=== PATIENT | female | born 1995 | race Caucasian/White ===

== ENCOUNTER → 2016-06-24 | Outpatient (CLI) | payer MEDICAID | LOC: RAD 14:47 | PROVIDERS: ATTEND Specialist | DX: G40.89 Other seizures (principal); R51 Headache | CPT/HCPCS: 70553; A9577 ==

== ENCOUNTER 2016-12-12 13:37 | Emergency (ER) | payer MEDICARE, MEDICAID ==
--- NOTE | 2016-12-12 14:47 | ER Document Report ---
ED Extremity Problem, Lower - General Chief Complaint: Leg Pain Stated Complaint: RIGHT SIDE HIP AND LEG PAIN Time Seen by Provider: 12/12/16 14:17 Mode of Arrival: Ambulatory Information source: Patient Notes: 21-year-old female presents to ED for right hip and leg pain for the last 4 days. She called her primary doctor and they told her to come to the emergency room to ensure that she did not have a blood clot in that leg. She states she is actually had the pain since 2016 but has been worse for the last 4 days. She came in she had a knee immobilizer on that the mother states that she got at 1 of her visits to the ER. TRAVEL OUTSIDE OF THE [place] IN LAST 30 DAYS: No - HPI Patient complains to provider of: Pain, Swelling Location: Hip, Knee, Leg, Thigh Occurred: Other - chchronic worse the last 4 days Quality of pain: Other - chronic Severity: Severe Pain Level: 5 Recent injury: No Associated symptoms: Painful ambulation Exacerbated by: Movement, Walking Relieved by: Nothing - Related Data Allergies/Adverse Reactions: acetaminophen [From Darvocet-N] Allergy (Verified 12/12/16 13:42) adhesive tape Allergy (Verified 12/12/16 13:42) codeine Allergy (Verified 12/12/16 13:42) escitalopram [From Lexapro] Allergy (Verified 12/12/16 13:42) hydromorphone [From Dilaudid] Allergy (Verified 12/12/16 13:42) ketorolac [From Toradol] Allergy (Verified 12/12/16 13:42) meperidine [From Demerol] Allergy (Verified 12/12/16 13:42) morphine Allergy (Verified 12/12/16 13:42) nitrofurantoin [From Macrobid] Allergy (Verified 12/12/16 13:42) ondansetron [From Zofran (as hydrochloride)] Allergy (Verified 12/12/16 13:42) propoxyphene [From Darvocet-N] Allergy (Verified 12/12/16 13:42) silver [From Tegaderm AG Mesh] Allergy (Verified 12/12/16 13:42) Past Medical History - General Information source: Patient, Relative - Social History Smoking Status: Never Smoker Cigarette use (# per day): No Chew tobacco use (# tins/day): No Smoking Education Provided: No Frequency of alcohol use: None Drug Abuse: None Lives with: Family Family History: Reviewed & Not Pertinent - Past Medical History Cardiac Medical History: Reports: None Pulmonary Medical History: Reports: None Neurological Medical History: Reports: Hx Seizures Endocrine Medical History: Reports: None Renal/ Medical History: Reports: None Malignancy Medical History: Reports: None GI Medical History: Reports: None Musculoskeltal Medical History: Reports Hx Arthritis, Reports Other - chronic pain right knee and leg Skin Medical History: Reports None Psychiatric Medical History: Reports: Hx Anxiety, Hx Depression Traumatic Medical History: Reports: None Past Surgical History: Reports: Hx Appendectomy, Hx Gynecologic Surgery - Immunizations Hx Diphtheria, Pertussis, Tetanus Vaccination: Yes Review of Systems - Review of Systems Constitutional: No symptoms reported EENT: No symptoms reported Cardiovascular: No symptoms reported Respiratory: No symptoms reported Gastrointestinal: No symptoms reported Genitourinary: No symptoms reported Female Genitourinary: No symptoms reported Musculoskeletal: Other - right thigh knee and leg pain chronic worse x 4 days Skin: No symptoms reported Hematologic/Lymphatic: No symptoms reported Neurological/Psychological: No symptoms reported -: Yes All other systems reviewed and negative Physical Exam - Vital signs Vitals: Temp Pulse Resp BP Pulse Ox 97.7 F 86 20 103/53 L 97 12/12/16 13:42 12/12/16 13:42 12/12/16 13:42 12/12/16 13:42 12/12/16 13:42 Interpretation: Normal - General General appearance: Appears well, Alert - HEENT Head: Normocephalic, Atraumatic Eyes: Normal Pupils: PERRL - Respiratory Respiratory status: No respiratory distress Chest status: Nontender Breath sounds: Normal Chest palpation: Normal - Cardiovascular Rhythm: Regular Heart sounds: Normal auscultation Murmur: No - Abdominal Inspection: Normal Distension: No distension Bowel sounds: Normal Tenderness: Nontender Organomegaly: No organomegaly - Back Back: Normal, Nontender - Extremities General upper extremity: Normal inspection, Nontender, Normal color, Normal ROM , Normal temperature General lower extremity: Normal inspection, Normal color, Normal temperature. No: Madisyn's sign Thigh: Tender Knee: Tender Calf: Tender Ankle: Tender - Neurological Neuro grossly intact: Yes Cognition: Normal Orientation: AAOx4 [place] Coma Scale Eye Opening: Spontaneous [place] Coma Scale Verbal: Oriented [place] Coma Scale Motor: Obeys Commands [place] Coma Scale Total: 15 Speech: Normal Motor strength normal: LUE, RUE, LLE, RLE Sensory: Normal - Psychological Associated symptoms: Normal affect, Normal mood - Skin Skin Temperature: Warm Skin Moisture: Dry Skin Color: Normal Course - Re-evaluation Re-evalutation: 12/12/16 21:28 Labs and ultrasound with patient and mother. Patient treated with a Lidoderm patch to the right knee. Patient knee immobilizer reapplied and patient discharged home to follow-up with her primary doctor. A copy of the x-ray and labs given to patient to follow-up. Mother stated that patient had a seizure while she was in the emergency room the patient was able to open her eyes and respond was not incontinent of urine. - Vital Signs Vital signs: Temp Pulse Resp BP Pulse Ox 97.7 F 79 16 117/62 98 12/12/16 13:42 12/12/16 17:43 12/12/16 17:43 12/12/16 17:43 12/12/16 17:43 - Laboratory Result Diagrams: 12/12/16 15:30 12/12/16 15:30 Laboratory results interpreted by me: 12/12/16 12/12/16 15:30 15:30 RBC 3.56 L Hgb 10.7 L Hct 31.2 L RDW 14.6 H Creatinine 0.49 L AST 12 L - Diagnostic Test Radiology reviewed: Image reviewed, Reports reviewed Discharge - Discharge Clinical Impression: Right leg pain Condition: Stable Disposition: HOME, SELF-CARE Additional Instructions: Leg Pain, Nonspecific We did not find an obvious cause for your leg pain. There's no sign of blood clot, infection, or other serious disease. Possible causes of vague leg pain include muscle or joint inflammation, disc disease in the lower back, pressure on the nerves in the back, or reduced blood flow through the arteries of the leg. Rest the leg. Pain can be eased with an antiinflammatory pain medicine such as ibuprofen. If the pain involves a small area, a heating pad might help. Call the doctor or return if the leg becomes swollen, weak, discolored, or increasingly painful, or if you develop any other significant change in your health. The patch was applied to your right knee for your knee pain that you have had since 2016 that she states was worse for the last 4 days. Your Doppler was negative a written report was given to you to follow-up with your primary doctor. Your labs were negative and a written report given to you to follow-up with your primary doctor. FOLLOW-UP CARE: If you have been referred to a physician for follow-up care, call the physician s office for an appointment as you were instructed or within the next two days. If you experience worsening or a significant change in your symptoms, notify the physician immediately or return to the Emergency Department at any time for re-evaluation. Prescriptions: Lidocaine [Lidoderm 5% (700 mg) Transdermal Patch] 1 patch TP DAILY #14 adh..patch Referrals: DUC PIERCE PA [Primary Care Provider] - Follow up as needed
[2016-12-12 16:00] LABS: ABSOLUTE BASOPHILS # (AUTO) 0.1 10^3/uL (0.0-0.2); ABSOLUTE EOSINOPHILS # (AUTO) 0.2 10^3/uL (0.0-0.6); ABSOLUTE LYMPHOCYTES (AUTO) 2.1 10^3/uL (0.5-4.7); ABSOLUTE MONOCYTES (AUTO) 0.7 10^3/uL (0.1-1.4); ABSOLUTE NEUT (AUTO) 5.6 10^3/uL (1.7-8.2); BASOPHILS % (AUTO) 0.7 % (0-2); EOSINOPHILS % (AUTO) 2.1 % (0-6); HEMATOCRIT 31.2 % (36.0-47.0); HEMOGLOBIN 10.7 g/dL (12.0-15.5); HGB HCT DIFFERENCE 0.9; LYMPHOCYTES % (AUTO) 23.8 % (13-45); MEAN CORPUSCULAR HEMOGLOBIN 30.2 pg (27.0-33.4); MEAN CORPUSCULAR HGB CONC 34.5 g/dL (32.0-36.0); MEAN CORPUSCULAR VOLUME 88 fl (80-97); MONOCYTES % (AUTO) 8.5 % (3-13); RED BLOOD COUNT 3.56 10^6/uL (3.72-5.28); RED CELL DISTRIBUTION WIDTH 14.6 % (11.5-14.0); SEGMENTED NEUTROPHILS % (AUTO) 64.9 % (42-78); WHITE BLOOD COUNT 8.7 10^3/uL (4.0-10.5)
[2016-12-12] MEDS ORDERED: LIDOCAINE 5% (700 MG) TRANSDERMAL ADH..PATCH TP ONE (16:09)
--- NOTE | 2016-12-12 16:12 | XCELERA REPORT ---
[address] [address] Lower Extremity Venous Evaluation Name: NATALIE SETHI Age: 21 yrs Gender: Female : 1995 Patient Status: Emergency Patient Location: ER Study Date: 12/12/2016 03:04 PM Procedure: Color flow and duplex imaging of the veins of the right lower extremity as well as the left Common Femoral vein. Reason For Study: pain to posterior thigh knee and calf Ordering Physician: CLAIRE HOWELL Performed By: Eliza Santiago Right Sided Venous Evaluation Distal Femoral vein not well visualized due to body habitus. Normal vessel filling wall to wall, compression and augmentation as well as Colour flow down to the infrageniculate veins. Left Sided Venous Evaluation The left common femoral vein is fully compressible. Spontaneous and phasic flow is present in the left common femoral vein. Critical Findings Preliminary called in. Interpretation Summary No duplex evidence of DVT or obstruction in the right lower extremity nor in the left Common Femoral vein. : CLAIRE HOWELL > Stephen Canales
[2016-12-12 16:19] LABS: ALANINE AMINOTRANSFERASE 21 U/L (9-52); ALBUMIN 3.8 g/dL (3.5-5.0); ALKALINE PHOSPHATASE 66 U/L (38-126); ANION GAP 10 (5-19); ASPARTATE AMINO TRANSFERASE 12 U/L (14-36); BILIRUBIN,DIRECT 0.3 mg/dL (0.0-0.4); BILIRUBIN,TOTAL 0.4 mg/dL (0.2-1.3); BLOOD UREA NITROGEN 10 mg/dL (7-20); CALCIUM 9.1 mg/dL (8.4-10.2); CARBON DIOXIDE 25 mmol/L (22-30); CHLORIDE 103 mmol/L (98-107); CREATINE KINASE 42 U/L (30-135); CREATININE RESULT 0.49 mg/dL (0.52-1.25); GLUCOSE 77 mg/dL (75-110); POTASSIUM 4.3 mmol/L (3.6-5.0); SODIUM 138.1 mmol/L (137-145); TOTAL PROTEIN 7.3 g/dL (6.3-8.2)
[2016-12-12 16:50] LABS: APPEARANCE,URINE CLEAR; BILIRUBIN,URINE NEGATIVE (NEGATIVE); GLUCOSE, URINE NEGATIVE (NEGATIVE); KETONES,URINE NEGATIVE (NEGATIVE); LEUKOCYTE ESTERASE,URINE NEGATIVE (NEGATIVE); NITRITE,URINE NEGATIVE (NEGATIVE); PROTEIN,URINE NEGATIVE (NEGATIVE); URINE SPECIFIC GRAVITY 1.009; UROBILINOGEN,URINE NEGATIVE mg/dL (<2.0)
[2016-12-12 17:01] LABS: URINE BARBITURATES SCREEN NEGATIVE; URINE METHADONE SCREEN NEGATIVE; URINE OPIATES LOW NEGATIVE; URINE PHENCYCLIDINE SCREEN NEGATIVE
[2016-12-12 17:45] VITALS: BP 117/62
== END 2016-12-12 17:44 | disposition home or self-care (01) ==
LOC: ER 13:37
DX: M79.604 Pain in right leg (principal); M25.551 Pain in right hip; M79.89 Other specified soft tissue disorders
CPT/HCPCS: 36415; 80053; 80307; 81001; 82550; 84703; 85025; 93971; 99283

== ENCOUNTER 2017-01-05 04:10 | Emergency (ER) | payer MEDICARE, MEDICAID ==
--- NOTE | 2017-01-05 04:19 | ER Document Report ---
ED General - General Chief Complaint: Probable Seizure Stated Complaint: PROBABLE SEIZURE Time Seen by Provider: 01/05/17 04:16 Mode of Arrival: Medic Information source: Patient, Relative, Emergency Med Personnel Notes: 21-year-old female history of epilepsy which mother states is brought on by her pain presents after her leg pain caused her to seize today mother notes it was a normal seizure. Denies any fevers or chills denies any nausea or vomiting, mother states she was holding the patient when it occurred and she hit her shoulder TRAVEL OUTSIDE OF THE [place] IN LAST 30 DAYS: No - HPI Onset: Just prior to arrival Onset/Duration: Sudden Quality of pain: No pain Severity: Mild Pain Level: Denies Associated symptoms: Other Exacerbated by: Denies Relieved by: Denies Similar symptoms previously: Yes Recently seen / treated by doctor: Yes - Related Data Allergies/Adverse Reactions: acetaminophen [From Darvocet-N] Allergy (Verified 12/12/16 13:42) adhesive tape Allergy (Verified 12/12/16 13:42) codeine Allergy (Verified 12/12/16 13:42) escitalopram [From Lexapro] Allergy (Verified 12/12/16 13:42) hydromorphone [From Dilaudid] Allergy (Verified 12/12/16 13:42) ketorolac [From Toradol] Allergy (Verified 12/12/16 13:42) meperidine [From Demerol] Allergy (Verified 12/12/16 13:42) morphine Allergy (Verified 12/12/16 13:42) nitrofurantoin [From Macrobid] Allergy (Verified 12/12/16 13:42) ondansetron [From Zofran (as hydrochloride)] Allergy (Verified 12/12/16 13:42) propoxyphene [From Darvocet-N] Allergy (Verified 12/12/16 13:42) silver [From Tegaderm AG Mesh] Allergy (Verified 12/12/16 13:42) Past Medical History - Social History Smoking Status: Never Smoker Cigarette use (# per day): No Chew tobacco use (# tins/day): No Smoking Education Provided: No Family History: Reviewed & Not Pertinent Neurological Medical History: Reports: Hx Seizures Renal/ Medical History: Denies: Hx Peritoneal Dialysis Musculoskeltal Medical History: Reports Hx Arthritis Psychiatric Medical History: Reports: Hx Anxiety, Hx Depression Past Surgical History: Reports: Hx Appendectomy, Hx Gynecologic Surgery - Immunizations Hx Diphtheria, Pertussis, Tetanus Vaccination: Yes Review of Systems - Review of Systems Notes: REVIEW OF SYSTEMS: CONSTITUTIONAL : Denies fever, chills, or sweats. Denies recent illness. EENT: Denies eye, ear, throat, or mouth pain or symptoms. Denies nasal or sinus congestion or discharge. Denies throat, tongue, or mouth swelling or difficulty swallowing. CARDIOVASCULAR: Denies chest pain. Denies palpitations or racing or irregular heart beat. Denies ankle edema. RESPIRATORY: Denies cough, cold, or chest congestion. Denies shortness of breath, difficulty breathing, or wheezing. GASTROINTESTINAL: Denies abdominal pain or distention. Denies nausea, vomiting , or diarrhea. Denies blood in vomitus, stools, or per rectum. Denies black, tarry stools. Denies constipation. GENITOURINARY: Denies difficulty urinating, painful urination, burning, frequency, blood in urine, or discharge. FEMALE GENITOURINARY: Denies vaginal bleeding, heavy or abnormal periods, irregular periods. Denies vaginal discharge or odor. MUSCULOSKELETAL: Admits to right arm pain SKIN: Denies rash, lesions or sores. HEMATOLOGIC : Denies easy bruising or bleeding. LYMPHATIC: Denies swollen, enlarged glands. NEUROLOGICAL: Admits to seizure-like activity PSYCHIATRIC: Denies anxiety or stress. Denies depression, suicidal ideation, or homicidal ideation. ALL OTHER SYSTEMS REVIEWED AND NEGATIVE. PHYSICAL EXAMINATION: GENERAL: Well-appearing, well-nourished and in no acute distress. HEAD: Atraumatic, normocephalic. EYES: Pupils equal round and reactive to light, extraocular movements intact, conjunctiva are normal. ENT: Nares patent, oropharynx clear without exudates. Moist mucous membranes. NECK: Normal range of motion, supple without lymphadenopathy LUNGS: Breath sounds clear to auscultation bilaterally and equal. No wheezes rales or rhonchi. HEART: Regular rate and rhythm without murmurs ABDOMEN: Soft, nontender, nondistended abdomen. No guarding, no rebound. No masses appreciated. Female : deferred Musculoskeletal: Generalized tenderness of her right side patient was able to ambulate on scene NEUROLOGICAL: Cranial nerves grossly intact. Normal speech, normal gait. Normal sensory, motor exams Initially patient refuses to talk and will only squeeze hand to say yes or no, but when I stated I could not remove her c-collar until she talked patient stated clearly that she had no neck pain PSYCH: Normal mood, normal affect. SKIN: Warm, Dry, normal turgor, no rashes or lesions noted. Dictation was performed using [employer] voice recognition software Physical Exam - Vital signs Vitals: Temp Pulse Resp BP Pulse Ox 97.7 F 78 20 114/60 97 01/05/17 04:17 01/05/17 04:17 01/05/17 04:17 01/05/17 04:17 01/05/17 04:17 Course - Re-evaluation Re-evalutation: 01/05/17 04:18 I have extremely low suspicion for any life-threatening issues, patient is responding appropriately. X-rays have been ordered of her right upper extremity given her complaint of pain 01/05/17 04:19 I do not believe any lab work or other imaging is required given that patient's pain brings on these seizure-like episodes 01/05/17 04:37 It appears that patient had a "seizure episode" while in the ED 2-3 weeks ago during which time she was responding and her eyes were open, this would be consistent with her current presentation 01/05/17 04:51 X-rays noted no acute abnormalities patient is awake alert family is happy to take her home. They are very happy with her care. After performing a Medical Screening Examination, I estimate there is LOW risk for INTRACRANIAL HEMORRHAGE, ISCHEMIC CVA, MALIGNANT DYSRHYTHMIA, ACUTE CORONARY SYNDROME, MENINGITIS, PULMONARY EMBOLISM, or SEPSIS thus I consider the discharge disposition reasonable. I have reevaluated this patient multiple times and no significant life threatening changes are noted. The patient and I have discussed the diagnosis and risks, and we agree with discharging home with close follow-up with the understanding that symptoms and presentations can change. We also discussed returning to the Emergency Department immediately if new or worsening symptoms occur. We have discussed the symptoms which are most concerning (e.g., changing or worsening pain, weakness, vomiting, fever) that necessitate immediate return. - Vital Signs Vital signs: Temp Pulse Resp BP Pulse Ox 97.7 F 78 20 114/60 97 01/05/17 04:17 01/05/17 04:17 01/05/17 04:17 01/05/17 04:17 01/05/17 04:17 - Diagnostic Test Radiology reviewed: Image reviewed, Reports reviewed - right elbow pain , no fracture Discharge - Discharge Clinical Impression: Seizure-like activity, Right elbow pain Right shoulder pain Qualifiers: Chronicity: acute Qualified Code(s): M25.511 - Pain in right shoulder Hip pain Qualifiers: Laterality: right Qualified Code(s): M25.551 - Pain in right hip Condition: Stable Disposition: HOME, SELF-CARE Instructions: Seizure, Known Epileptic ([facility]) Referrals: DUC PIERCE PA [Primary Care Provider] - Follow up tomorrow
[2017-01-05] MEDS ORDERED: AMMONIA INHALANTS 10 AMPUL/BOX IH ONE (04:40)
[2017-01-05 05:04] VITALS: BP 113/61
--- NOTE | 2017-01-05 05:07 | RADIOLOGY REPORT (SQ) ---
EXAM DESCRIPTION: SHOULDER RIGHT 2 OR MORE VIEWS COMPLETED DATE/TIME: 01/05/2017 4:51 am REASON FOR STUDY: fall COMPARISON: None. NUMBER OF VIEWS: Three views. TECHNIQUE: Internal rotation, external rotation, and Y view images acquired of the right shoulder. LIMITATIONS: None. FINDINGS: MINERALIZATION: Normal. BONES: No acute fracture or dislocation. No worrisome bone lesions. JOINTS: No dislocation. VISUALIZED LUNGS AND RIBS: No pneumothorax. No rib fracture. SOFT TISSUES: No radiopaque foreign body. OTHER: No other significant finding. IMPRESSION: NEGATIVE STUDY OF THE RIGHT SHOULDER. NO RADIOGRAPHIC EVIDENCE OF ACUTE INJURY. TECHNICAL DOCUMENTATION: JOB ID: [id number] [employer]- All Rights Reserved
--- NOTE | 2017-01-05 05:07 | RADIOLOGY REPORT (SQ) ---
EXAM DESCRIPTION: ELBOW RIGHT OVER 2 VIEWS COMPLETED DATE/TIME: 01/05/2017 4:51 am REASON FOR STUDY: fall COMPARISON: None. NUMBER OF VIEWS: Four views. TECHNIQUE: AP, lateral, and both oblique radiographic images acquired of the right elbow. LIMITATIONS: None. FINDINGS: MINERALIZATION: Normal. BONES: No acute fracture or dislocation. No worrisome bone lesions. JOINT: No effusion. SOFT TISSUES: No soft tissue swelling. No foreign body. OTHER: No other significant finding. IMPRESSION: NEGATIVE STUDY OF THE RIGHT ELBOW. NO RADIOGRAPHIC EVIDENCE OF ACUTE INJURY. TECHNICAL DOCUMENTATION: JOB ID: [id number] [employer]- All Rights Reserved
== END 2017-01-05 05:04 | disposition home or self-care (01) ==
LOC: ER 04:10
DX: M25.521 Pain in right elbow (principal); M25.511 Pain in right shoulder; M25.551 Pain in right hip
CPT/HCPCS: 99284

== ENCOUNTER → 2017-06-09 | Outpatient (CLI) | payer MEDICARE, MEDICAID | LOC: LAB 13:10 | PROVIDERS: ATTEND Specialist | DX: G40.89 Other seizures (principal); Z79.899 Other long term (current) drug therapy | CPT/HCPCS: 36415; 80164 ==

== ENCOUNTER → 2017-09-12 | Outpatient (CLI) | payer MEDICARE, MEDICAID ==
[2017-09-12 11:18] LABS: HEMOGLOBIN 11.8 g/dL (12.0-15.5); MEAN CORPUSCULAR HEMOGLOBIN 29.2 pg (27.0-33.4); MEAN CORPUSCULAR HGB CONC 33.6 g/dL (32.0-36.0); MEAN CORPUSCULAR VOLUME 87 fl (80-97); PLATELET COUNT 253 10^3/uL (150-450); RED BLOOD COUNT 4.03 10^6/uL (3.72-5.28); RED CELL DISTRIBUTION WIDTH 15.7 % (11.5-14.0); WHITE BLOOD COUNT 13.6 10^3/uL (4.0-10.5)
[2017-09-12 11:49] LABS: ALANINE AMINOTRANSFERASE 23 U/L (9-52); ALBUMIN 3.9 g/dL (3.5-5.0); ALKALINE PHOSPHATASE 62 U/L (38-126); ASPARTATE AMINO TRANSFERASE 15 U/L (14-36); BILIRUBIN,DIRECT 0.2 mg/dL (0.0-0.4); BILIRUBIN,TOTAL 0.3 mg/dL (0.2-1.3); TOTAL PROTEIN 7.2 g/dL (6.3-8.2)
--- NOTE | 2017-09-12 11:57 | RADIOLOGY REPORT (SQ) ---
EXAM DESCRIPTION: MRI HEAD COMBO COMPLETED DATE/TIME: 09/12/2017 10:47 am REASON FOR STUDY: R56.9 UNSPECIFIED CONVULSIONS R56.9 UNSPECIFIED CONVULSIONS COMPARISON: 06/24/2016 TECHNIQUE: Multiplanar imaging includes noncontrasted T1, T2, FLAIR, diffusion with ADC map and post gadolinium contrast T1 sequences. Images stored on PACS. CONTRAST TYPE AND DOSE: 20 mL Multihance. RENAL FUNCTION: None required. The patient is less than 50 years old. LIMITATIONS: Artifact from metal jewelry right ear. FINDINGS: ANATOMY: No anomalies. Normal vascular flow voids. Pituitary fossa normal. CSF SPACES: Normal in size and contour. No hemorrhage. CEREBRUM: Sulci and gyri normal in size and contour. Normal white matter signal on FLAIR imaging. No evidence of hemorrhage, mass, or extraaxial fluid collection. No abnormal enhancement post contrast. POSTERIOR FOSSA: No signal alteration. No hemorrhage. No edema, masses, or mass effect. Internal ana tory canals, cerebellopontine angles, mastoids normal. No enhancing lesions. No abnormal enhancement post contrast. DIFFUSION IMAGING: Negative for acute or subacute infarction. ORBITS: No masses. Globes normal. PARANASAL SINUSES: No fluid levels. Mucosa normal. OTHER: No other significant finding. IMPRESSION: NORMAL MRI OF THE BRAIN WITHOUT AND WITH INTRAVENOUS GADOLINIUM CONTRAST. EVIDENCE OF ACUTE STROKE: NO. TECHNICAL DOCUMENTATION: JOB ID: [id number] [employer]- All Rights Reserved Reading location - IP/workstation name: [email or web address]
== END ==
LOC: RAD 11:31
PROVIDERS: ATTEND Nurse Practitioner Family
DX: R56.9 Unspecified convulsions (principal); G43.709 Chronic migraine without aura, not intractable, without status migrainosus; Z79.899 Other long term (current) drug therapy
CPT/HCPCS: 36415; 85027; 80076; 80164; 70553; A9577

== ENCOUNTER 2017-09-21 01:32 | Emergency (ER) | payer MEDICARE, MEDICAID ==
[2017-09-21] MEDS ORDERED: IPRATROPIUM/ALBUTEROL 0.5-2.5 MG/3 ML AMPUL NEB ONE (01:49)
[2017-09-21] MEDS ORDERED: DIPHENHYDRAMINE HCL 50 MG/ML VIAL IV ONE (02:01)
[2017-09-21] MEDS ORDERED: NORMAL SALINE 1000 ML 1,000 ML IV ONE (02:01)
[2017-09-21] MEDS ORDERED: DEXAMETHASONE SOD PHOS INJ 10 MG/1 ML VIAL IV ONE (02:01)
[2017-09-21] MEDS ORDERED: METOCLOPRAMIDE HCL INJ/PF 10 MG/2 ML SDV IV ONE (02:02)
--- NOTE | 2017-09-21 02:37 | RADIOLOGY REPORT (SQ) ---
EXAM DESCRIPTION: CT of the head without contrast CLINICAL HISTORY: headache, seizure COMPARISON: None available TECHNIQUE: Axial CT of the head obtained from the skull apex to the skull base without contrast. FINDINGS: No acute intracranial hemorrhage identified. No mass, mass effect, shift of the midline, abnormal extra-axial fluid collection or CT evidence of acute ischemic change identified. The ventricular system is unremarkable. No acute abnormalities of the supratentorial white matter, basal ganglia, cerebellum, or brainstem. The visualized paranasal sinuses and the mastoids are clear. No skull fracture identified. Visualized orbits and globes are unremarkable. DLP: 1017.17 mGy-cm IMPRESSION: 1. No acute intracranial abnormality identified. This exam was performed according to our departmental dose-optimization program, which includes automated exposure control, adjustment of the mA and/or kV according to patient size and/or use of iterative reconstruction technique.
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
[2017-09-21 03:28] VITALS: BP 121/79
== END 2017-09-21 03:26 | disposition home or self-care (01) ==
LOC: ER 01:32
DX: R51 Headache (principal); W22.8XXA Striking against or struck by other objects, initial encounter; Y93.89 Activity, other specified; G40.909 Epilepsy, unspecified, not intractable, without status epilepticus; Z79.899 Other long term (current) drug therapy; Z87.820 Personal history of traumatic brain injury; Z88.5 Allergy status to narcotic agent; Z91.048 Other nonmedicinal substance allergy status; Z88.8 Allergy status to other drugs, medicaments and biological substances; Z88.6 Allergy status to analgesic agent; Z88.1 Allergy status to other antibiotic agents
CPT/HCPCS: 94640; 99284; 96361; 96374; 96375; 36415; 80164; 70450; J1200; J2765; J7030; J1100

== ENCOUNTER 2019-03-08 21:28 | Emergency (ER) | payer MEDICARE, MEDICAID ==
[2019-03-08 22:21] LABS: ABSOLUTE BASOPHILS # (AUTO) 0.1 10^3/uL (0.0-0.2); ABSOLUTE EOSINOPHILS # (AUTO) 0.3 10^3/uL (0.0-0.6); ABSOLUTE LYMPHOCYTES (AUTO) 2.3 10^3/uL (0.5-4.7); ABSOLUTE NEUT (AUTO) 5.4 10^3/uL (1.7-8.2); BASOPHILS % (AUTO) 0.9 % (0-2); EOSINOPHILS % (AUTO) 3.1 % (0-6); HEMATOCRIT 33.3 % (36.0-47.0); HEMOGLOBIN 11.5 g/dL (12.0-15.5); LYMPHOCYTES % (AUTO) 25.3 % (13-45); MEAN CORPUSCULAR HEMOGLOBIN 30.5 pg (27.0-33.4); MEAN CORPUSCULAR HGB CONC 34.5 g/dL (32.0-36.0); MEAN CORPUSCULAR VOLUME 89 fl (80-97); MONOCYTES % (AUTO) 10.7 % (3-13); PLATELET COUNT 269 10^3/uL (150-450); RED BLOOD COUNT 3.76 10^6/uL (3.72-5.28); RED CELL DISTRIBUTION WIDTH 15.3 % (11.5-14.0); TOTAL CELLS COUNTED % (AUTO) 100 %
[2019-03-08] MEDS ORDERED: NORMAL SALINE 1000 ML 1,000 ML IV ONE (22:30)
[2019-03-08 22:45] LABS: ALBUMIN 3.8 g/dL (3.5-5.0); ALKALINE PHOSPHATASE 55 U/L (38-126); ANION GAP 9 (5-19); ASPARTATE AMINO TRANSFERASE 32 U/L (14-36); BILIRUBIN,DIRECT 0.2 mg/dL (0.0-0.4); BILIRUBIN,TOTAL 0.6 mg/dL (0.2-1.3); BLOOD UREA NITROGEN 8 mg/dL (7-20); CALCIUM 9.1 mg/dL (8.4-10.2); CARBON DIOXIDE 27 mmol/L (22-30); CHLORIDE 103 mmol/L (98-107); GLUCOSE 83 mg/dL (75-110); POTASSIUM 4.6 mmol/L (3.6-5.0); TOTAL PROTEIN 7.2 g/dL (6.3-8.2)
--- NOTE | 2019-03-08 22:45 | ER Document Report ---
ED General - General TRAVEL OUTSIDE OF THE [place].S. IN LAST 30 DAYS: No <ISHAAN AQUINO - Last Filed: 03/09/19 01:06> <JAMIE BUENROSTRO - Last Filed: 03/09/19 07:56> - General Chief Complaint: Seizure Stated Complaint: POSSIBLE SEIZURES Time Seen by Provider: 03/08/19 21:48 Primary Care Provider: ANAIS MASTERS FNP-C [Primary Care Provider] - 03/11/19 Notes: Patient is a 23-year-old female who presents the emergency department after a seizure. Mother states that she has had on and off seizures since 1800 this evening. Patient is currently on Depakote, amitriptyline, trazodone, gabapentin. Patient also has history of chronic migraines. Patient has complaints of right rib pain. She was on the couch and ended up falling off. That the only pain that the patient has at this time. Patient denies any numbness or tingling. (ISHAAN AQUINO) - Related Data Allergies/Adverse Reactions: acetaminophen [From Darvocet-N] Allergy (Verified 12/12/16 13:42) adhesive tape Allergy (Verified 12/12/16 13:42) codeine Allergy (Verified 12/12/16 13:42) escitalopram [From Lexapro] Allergy (Verified 12/12/16 13:42) hydromorphone [From Dilaudid] Allergy (Verified 12/12/16 13:42) ketorolac [From Toradol] Allergy (Verified 12/12/16 13:42) meperidine [From Demerol] Allergy (Verified 12/12/16 13:42) morphine Allergy (Verified 12/12/16 13:42) nitrofurantoin [From Macrobid] Allergy (Verified 12/12/16 13:42) ondansetron [From Zofran (as hydrochloride)] Allergy (Verified 12/12/16 13:42) propoxyphene [From Darvocet-N] Allergy (Verified 12/12/16 13:42) silver [From Tegaderm AG Mesh] Allergy (Verified 12/12/16 13:42) Past Medical History - Social History Family History: Reviewed & Not Pertinent Neurological Medical History: Reports: Hx Seizures Renal/ Medical History: Denies: Hx Peritoneal Dialysis Musculoskeletal Medical History: Reports Hx Arthritis Psychiatric Medical History: Reports: Hx Anxiety, Hx Depression Past Surgical History: Reports: Hx Appendectomy, Hx Gynecologic Surgery - Immunizations Hx Diphtheria, Pertussis, Tetanus Vaccination: Yes <ISHAAN AQUINO - Last Filed: 03/09/19 01:06> - Social History Smoking Status: Never Smoker Family History: Reviewed & Not Pertinent <JAMIE BUENROSTRO - Last Filed: 03/09/19 07:56> Review of Systems <ISHAAN AQUINO - Last Filed: 03/09/19 01:06> - Review of Systems Notes: REVIEW OF SYSTEMS: CONSTITUTIONAL : Denies recent illness. Denies recent unintentional weight loss. Denies fever, chills, or sweats. EENT: Denies eye, ear, throat, or mouth pain, discharge, or symptoms. Denies nasal or sinus congestion. CARDIOVASCULAR: Denies chest pain. RESPIRATORY: Denies shortness of breath, cough, congestion, difficulty breathing, or wheezing. GASTROINTESTINAL: Denies nausea, vomiting, and diarrhea. Denies abdominal pain. Denies constipation. GENITOURINARY: Denies difficulty urinating, burning, blood in urine, urgency or frequency. MUSCULOSKELETAL: Denies neck and back pain. Denies joint pain or swelling. See HPI. SKIN: Denies rash, itchiness, or lesions HEMATOLOGIC : Denies easy bruising or bleeding. LYMPHATIC: Denies swollen, painful, enlarged glands. NEUROLOGICAL: See HPI. PSYCHIATRIC: Denies stress, anxiety, alteration in sleep patterns, or depression. All other systems reviewed and negative. (ISHAAN AQUINO) Physical Exam <ISHAAN AQUINO - Last Filed: 03/09/19 01:06> - Vital signs Vitals: Resp 14 03/08/19 21:38 - Notes Notes: PHYSICAL EXAMINATION: GENERAL: Appears well, healthy, well-nourished, no acute distress. HEAD: Normocephalic, atraumatic. EYES: PERRL, conjunctiva normal, all extraocular movements intact, sclera nonicteric ENT: Dry mucous membranes. NECK: Supple, no noticeable swelling, redness, rash. Normal range of motion. LUNGS: Equal breath sounds bilaterally and clear to auscultation. No wheezes rales or rhonchi. CARDIOVASCULAR: S1-S2, regular rate, regular rhythm. Radial pulses 2+, normal. ABDOMEN: Normoactive bowel sounds. Soft, nontender, no guarding, no rebound tenderness, and no masses palpated. EXTREMITIES: Normal strength and range of motion, no pitting or edema. No cyanosis. NEUROLOGICAL: Moves all extremities upon command. Strength 5/5 in all extremities. Slow to respond, postictal. PSYCH: Normal mood, normal affect. SKIN: Warm, dry. No rash, lesions, ulcerations noted. Normal skin turgor. (ISHAAN AQUINO) Course - Laboratory Result Diagrams: 03/08/19 21:57 03/08/19 21:57 <ISHAAN AQUINO - Last Filed: 03/09/19 01:06> - Laboratory Result Diagrams: 03/08/19 21:57 03/08/19 21:57 <JAMIE BUENROSTRO - Last Filed: 03/09/19 07:56> - Re-evaluation Re-evalutation: 03/08/19 23:43 Patient's rib x-ray is negative for any acute findings at this time. Her current level is therapeutic. Patient has not had any seizures since my initial assessment. Patient's hematology is unremarkable. Her chemistries are also unremarkable. Awaiting urinalysis. 03/09/19 00:00 Bedside report given to Jamie Buenrostro. She will follow up with urinalysis. (ISHAAN AQUINO) 03/09/19 02:00 Patient resting with eyes closed, arouses easily to voice. Patient complains of right-sided headache and is requesting medicine for the headache at this time. 03/09/19 04:25 Patient reports that headache is completely resolved at this time and is feeling much better. Patient encouraged to follow-up with her primary doctor as well as neurologist for recheck. (JAMIE BUENROSTRO) - Vital Signs Vital signs: Temp Pulse Resp BP Pulse Ox 98.2 F 15 117/77 97 03/09/19 04:01 03/09/19 04:01 03/09/19 04:01 03/09/19 04:01 - Laboratory Laboratory results interpreted by me: 03/08/19 03/08/19 21:57 21:57 Hgb 11.5 L Hct 33.3 L RDW 15.3 H Creatinine 0.48 L - EKG Interpretation by Me Additional EKG results interpreted by me: 03/08/19 23:55 Sinus rhythm. Rate 97. AL 136; QRS 88; QT 364; QTc 463. No ST elevations or depressions. (ISHAAN AQUINO) Discharge <ISHAAN AQUINO - Last Filed: 03/09/19 01:06> <JAMIE BUENROSTRO - Last Filed: 03/09/19 07:56> - Discharge Clinical Impression: Seizure Contusion of rib on right side Qualifiers: Encounter type: initial encounter Qualified Code(s): S20.211A - Contusion of right front wall of thorax, initial encounter Headache Qualifiers: Headache type: unspecified Headache chronicity pattern: episodic headache Intractability: not intractable Qualified Code(s): R51 - Headache Condition: Stable Disposition: HOME, SELF-CARE Instructions: Headache ([facility]), Seizure, Known Epileptic ([facility]) Additional Instructions: You were seen today in the emergency department after a seizure. Your Depakote level is therapeutic. Your other labs are normal. Your rib x-ray was normal, but you suffered a contusion to your rib. You can use ice to help with the pain. Please continue to take the medications that you are currently on. Please follow-up with your neurologist on Monday in regards to this visit. If you have worsening symptoms, please return to the emergency department. See if you are able to get referred out for sleep study. Referrals: ANAIS MASTERS FNP-C [Primary Care Provider] - 03/11/19
--- NOTE | 2019-03-08 22:46 | RADIOLOGY REPORT (SQ) ---
EXAM DESCRIPTION: XR RIBS UNILATERAL WITH CHEST COMPLETED DATE/TME: 03/08/2019 22:01 CLINICAL HISTORY: 23 years, Female, rib pain; seizure COMPARISON: None. NUMBER OF VIEWS: 5 TECHNIQUE: Frontal view the chest with 4 views of the right ribs LIMITATIONS: None. FINDINGS: The heart size is normal. Lungs are clear. No pneumothorax. Negative for right rib fracture IMPRESSION: Negative exam copyright 2010 [employer]- All Rights Reserved
[2019-03-09 00:27] LABS: APPEARANCE,URINE SLIGHTLY-CLOUDY; BILIRUBIN,URINE NEGATIVE (NEGATIVE); COLOR,URINE YELLOW; GLUCOSE, URINE NEGATIVE (NEGATIVE); KETONES,URINE NEGATIVE (NEGATIVE); PROTEIN,URINE NEGATIVE (NEGATIVE); URINE SPECIFIC GRAVITY 1.011; UROBILINOGEN,URINE NEGATIVE mg/dL (<2.0)
[2019-03-09 00:40] LABS: URINE AMPHETAMINES SCREEN NEGATIVE; URINE BARBITURATES SCREEN UNCONFIRMED POSITIVE; URINE BENZODIAZEPINES SCREEN NEGATIVE; URINE COCAINE SCREEN NEGATIVE; URINE MARIJUANA (THC) SCREEN NEGATIVE; URINE METHADONE SCREEN NEGATIVE; URINE PHENCYCLIDINE SCREEN NEGATIVE
[2019-03-09] MEDS ORDERED: DIPHENHYDRAMINE HCL 50 MG/ML VIAL IV ONE (02:04)
[2019-03-09] MEDS ORDERED: DEXAMETHASONE SOD PHOS INJ 10 MG/1 ML VIAL IV ONE (02:04)
[2019-03-09] MEDS ORDERED: ACETAMINOPHEN 325 MG TABLET PO ONE (02:04)
[2019-03-09] MEDS ORDERED: PROMETHAZINE HCL 25 MG TABLET PO ONE (02:04)
[2019-03-09 04:31] VITALS: BP 117/77
--- NOTE | 2019-03-09 09:00 | EKG REPORT ---
SEVERITY:- ABNORMAL ECG - SINUS RHYTHM CONSIDER LEFT VENTRICULAR HYPERTROPHY : Confirmed by: Harsha Philip MD 09-Mar-2019 08:59:49
== END 2019-03-09 04:39 | disposition home or self-care (01) ==
LOC: ER 21:28
DX: R56.9 Unspecified convulsions (principal); S20.211A Contusion of right front wall of thorax, initial encounter; W08.XXXA Fall from other furniture, initial encounter; R51 Headache; F32.9 Major depressive disorder, single episode, unspecified; F41.9 Anxiety disorder, unspecified; Z79.899 Other long term (current) drug therapy; Z88.8 Allergy status to other drugs, medicaments and biological substances; Z91.048 Other nonmedicinal substance allergy status; Z88.5 Allergy status to narcotic agent; Z88.1 Allergy status to other antibiotic agents
CPT/HCPCS: 93005; 99285; 96361; 96374; 96375; 36415; 85025; 80053; 81001; 80164; 80307; 71101; 93010; A9270 ×2; J1200; J7030; J1100

== ENCOUNTER 2019-06-15 02:03 | Emergency (ER) | payer MEDICARE, MEDICAID ==
[2019-06-15 02:41] LABS: ABSOLUTE BASOPHILS # (AUTO) 0.1 10^3/uL (0.0-0.2); ABSOLUTE EOSINOPHILS # (AUTO) 0.3 10^3/uL (0.0-0.6); ABSOLUTE LYMPHOCYTES (AUTO) 3.3 10^3/uL (0.5-4.7); ABSOLUTE MONOCYTES (AUTO) 0.8 10^3/uL (0.1-1.4); ABSOLUTE NEUT (AUTO) 5.2 10^3/uL (1.7-8.2); BASOPHILS % (AUTO) 0.7 % (0-2); EOSINOPHILS % (AUTO) 3.5 % (0-6); HEMATOCRIT 31.5 % (36.0-47.0); HEMOGLOBIN 10.7 g/dL (12.0-15.5); LYMPHOCYTES % (AUTO) 33.8 % (13-45); MEAN CORPUSCULAR HEMOGLOBIN 30.4 pg (27.0-33.4); MEAN CORPUSCULAR HGB CONC 34.1 g/dL (32.0-36.0); MEAN CORPUSCULAR VOLUME 89 fl (80-97); MONOCYTES % (AUTO) 8.6 % (3-13); PLATELET COUNT 236 10^3/uL (150-450); RED BLOOD COUNT 3.53 10^6/uL (3.72-5.28); RED CELL DISTRIBUTION WIDTH 14.7 % (11.5-14.0); SEGMENTED NEUTROPHILS % (AUTO) 53.4 % (42-78); TOTAL CELLS COUNTED % (AUTO) 100 %; WHITE BLOOD COUNT 9.7 10^3/uL (4.0-10.5)
[2019-06-15 03:05] LABS: ALBUMIN 3.6 g/dL (3.5-5.0); ALCOHOL < 10 mg/dL (NONE DETECTED); ALKALINE PHOSPHATASE 53 U/L (38-126); ANION GAP 9 (5-19); ASPARTATE AMINO TRANSFERASE 24 U/L (14-36); BILIRUBIN,TOTAL 0.4 mg/dL (0.2-1.3); BLOOD UREA NITROGEN 12 mg/dL (7-20); CALCIUM 9.1 mg/dL (8.4-10.2); CARBON DIOXIDE 29 mmol/L (22-30); CHLORIDE 103 mmol/L (98-107); GLUCOSE 87 mg/dL (75-110); POTASSIUM 4.1 mmol/L (3.6-5.0); TOTAL PROTEIN 6.8 g/dL (6.3-8.2)
--- NOTE | 2019-06-15 03:47 | ER Document Report ---
ED Seizure - General Chief Complaint: Seizure Stated Complaint: SEIZURE Time Seen by Provider: 06/15/19 03:36 Primary Care Provider: ANAIS MASTERS FNP-C [Primary Care Provider] - Follow up as needed Notes: Patient is a 23-year-old female with a history of epilepsy that comes emergency department by EMS for chief complaint of seizures. Patient was reported to have a tonic-clonic seizure just prior to arrival, mom states she is not sure how many minutes this lasted but EMS reported that patient had a total of 2 seizures, she was given 5 mg Versed after the first witnessed seizure, then she started having another tonic-clonic seizure in route and this was aborted using another 5 mg of Versed. Upon arrival patient is arousable but very drowsy. Patient reportedly takes Depakote 500 mg in the a.m. and 750 mg in the evening but is on no other medications for seizures. Patient also has a history of PCOS. Mom states that she is currently on an antibiotic for a suspected infection in the right axillary area but mom states this is almost completely resolved. No fevers, patient had complained of some lower abdominal pain earlier in the day. Last seizure was in February of last year. Patient follows with [facility] neurology Dr. Avery. No recreational drugs or alcohol reported by parents. Patient also reportedly takes trazodone for sleep and did take this prior to her seizure activity tonight. - Related Data Allergies/Adverse Reactions: acetaminophen [From Darvocet-N] Allergy (Verified 12/12/16 13:42) adhesive tape Allergy (Verified 12/12/16 13:42) codeine Allergy (Verified 12/12/16 13:42) escitalopram [From Lexapro] Allergy (Verified 12/12/16 13:42) hydromorphone [From Dilaudid] Allergy (Verified 12/12/16 13:42) ketorolac [From Toradol] Allergy (Verified 12/12/16 13:42) meperidine [From Demerol] Allergy (Verified 12/12/16 13:42) morphine Allergy (Verified 12/12/16 13:42) nitrofurantoin [From Macrobid] Allergy (Verified 12/12/16 13:42) ondansetron [From Zofran (as hydrochloride)] Allergy (Verified 12/12/16 13:42) propoxyphene [From Darvocet-N] Allergy (Verified 12/12/16 13:42) silver [From Tegaderm AG Mesh] Allergy (Verified 12/12/16 13:42) Home Medications: Gabapentin. Stool softner. Trazadone. Divalproex 500mg. Divalproex- ER 250mg. Levothyroxine. Pantoprazole. Dicyclomine Past Medical History - General Information source: Patient - Social History Smoking Status: Never Smoker Chew tobacco use (# tins/day): No Frequency of alcohol use: None Drug Abuse: None Family History: Reviewed & Not Pertinent Patient has suicidal ideation: No Patient has homicidal ideation: No Neurological Medical History: Reports: Hx Seizures Renal/ Medical History: Denies: Hx Peritoneal Dialysis Musculoskeletal Medical History: Reports Hx Arthritis Psychiatric Medical History: Reports: Hx Anxiety, Hx Depression Past Surgical History: Reports: Hx Appendectomy, Hx Gynecologic Surgery - Immunizations Hx Diphtheria, Pertussis, Tetanus Vaccination: Yes Review of Systems - Review of Systems Constitutional: No symptoms reported EENT: No symptoms reported Cardiovascular: No symptoms reported Respiratory: No symptoms reported Gastrointestinal: No symptoms reported Genitourinary: No symptoms reported Female Genitourinary: No symptoms reported Musculoskeletal: No symptoms reported Skin: No symptoms reported Hematologic/Lymphatic: No symptoms reported Neurological/Psychological: See HPI Physical Exam - Vital signs Vitals: Temp Resp Pulse Ox 97.6 F 21 H 96 06/15/19 02:05 06/15/19 02:05 06/15/19 02:05 - Notes Notes: GENERAL: Sleeping, drowsy, arousable and answers yes/no questions only. HEAD: Normocephalic, atraumatic. EYES: Pupils equal, round, and reactive to light. Extraocular movements intact. ENT: Oral mucosa moist, tongue midline. Oropharynx unremarkable. Airway patent. Nares patent, no nasal septal hematoma, TM's intact. NECK: Full range of motion. Supple. Trachea midline. LUNGS: Clear to auscultation bilaterally, no wheezes, rales, or rhonchi. No respiratory distress. HEART: Regular rate and rhythm. No murmur ABDOMEN: Soft, non-tender. Non-distended. Bowel sounds present in all 4 quadrants. GENITOURINARY: Deferred EXTREMITIES: Moves all 4 extremities spontaneously. No edema, normal radial and dorsalis pedis pulses bilaterally. No cyanosis. BACK: no cervical, thoracic, lumbar midline tenderness. No saddle anesthesia, normal distal neurovascular exam. Moves all extremities in full range of motion. NEUROLOGICAL: Sleeping, answers questions with yes or no only, obeys commands, GCS of 11. Cranial nerves II through XII grossly intact. SKIN: Warm, dry, normal turgor. No rashes or lesions noted. Course - Re-evaluation Re-evalutation: Patient responds to loud verbal stimuli and gentle shaking. She opens her eyes and looks at me and then goes back to sleep. Her vital signs are normal. She has no signs of trauma. Family members cannot seem to agree on how long patient had a seizure, seems as if the initial one lasted for several minutes, apparently patient became alert, pushed past them, started crying, and then with EMS had another seizure. I am not told how long this one lasted. Patient definitely seems to be postictal but she is still arousable. CBC, chemistry, magnesium, alcohol unremarkable. Depakote is therapeutic. Patient has been reevaluated. She is more arousable, she will answer questions with yes or no but she is still very drowsy. She is still too drowsy to stand up safely. She has not had any additional seizure activity. Patient will be monitored until she is alert and safe to ambulate. At this point we will contact her neurologist Dr. Rodríguez (or the on-call neurologist) at the transfer center or at the phone number [phone] recommendations because of patient's 2 seizures tonight on her therapeutic Depakote. Discussed this with parents, they state appreciation and agreement with plan. - Vital Signs Vital signs: Temp Pulse Resp BP Pulse Ox 97.6 F 19 111/67 95 06/15/19 02:05 06/15/19 05:01 06/15/19 05:01 06/15/19 05:01 - Laboratory Result Diagrams: 06/15/19 02:18 06/15/19 02:18 Laboratory results interpreted by me: 06/15/19 06/15/19 02:18 02:18 RBC 3.53 L Hgb 10.7 L Hct 31.5 L RDW 14.7 H Creatinine 0.44 L Discharge - Discharge Clinical Impression: Seizures Epilepsy Qualifiers: Epilepsy type: unspecified Intractability: not intractable Status epilepticus: without status epilepticus Qualified Code(s): G40.909 - Epilepsy, unspecified, not intractable, without status epilepticus Condition: Stable Disposition: HOME, SELF-CARE Referrals: ANAIS MASTERS FNP-C [Primary Care Provider] - Follow up as needed
[2019-06-15] MEDS ORDERED: METOCLOPRAMIDE HCL INJ/PF 10 MG/2 ML SDV IV ONE (08:18)
[2019-06-15 12:37] LABS: APPEARANCE,URINE SLIGHTLY-CLOUDY; BILIRUBIN,URINE NEGATIVE (NEGATIVE); COLOR,URINE YELLOW; GLUCOSE, URINE NEGATIVE (NEGATIVE); KETONES,URINE NEGATIVE (NEGATIVE); LEUKOCYTE ESTERASE,URINE NEGATIVE (NEGATIVE); NITRITE,URINE NEGATIVE (NEGATIVE); PROTEIN,URINE NEGATIVE (NEGATIVE); URINE SPECIFIC GRAVITY 1.025; UROBILINOGEN,URINE NEGATIVE mg/dL (<2.0)
[2019-06-15 12:46] LABS: URINE AMPHETAMINES SCREEN NEGATIVE; URINE BARBITURATES SCREEN NEGATIVE; URINE COCAINE SCREEN NEGATIVE; URINE MARIJUANA (THC) SCREEN NEGATIVE; URINE METHADONE SCREEN NEGATIVE; URINE PHENCYCLIDINE SCREEN NEGATIVE
[2019-06-15 12:49] LABS: URINE BENZODIAZEPINES SCREEN UNCONFIRMED POSITIVE
[2019-06-15 13:32] VITALS: BP 113/61
--- NOTE | 2019-06-15 21:23 | EKG REPORT ---
SEVERITY:- ABNORMAL ECG - SINUS RHYTHM CONSIDER LEFT VENTRICULAR HYPERTROPHY : Confirmed by: Anu Luciano MD 15-Jun-2019 21:22:20
== END 2019-06-15 13:30 | disposition home or self-care (01) ==
LOC: ER 02:03
DX: G40.909 Epilepsy, unspecified, not intractable, without status epilepticus (principal); Z79.899 Other long term (current) drug therapy; Z88.8 Allergy status to other drugs, medicaments and biological substances
CPT/HCPCS: 93005; 99284; 96374; 36415; 82962; 80307 ×2; 83735; 84703; 85025; 80053; 81001; 80164; 93010; J2765

== ENCOUNTER 2020-05-11 02:02 | Emergency (ER) | payer MEDICARE, MEDICAID ==
--- NOTE | 2020-05-11 02:47 | ER Document Report ---
ED General - General Chief Complaint: Seizure Stated Complaint: POSSIBLE SEIZURE Time Seen by Provider: 05/11/20 02:17 Primary Care Provider: ANAIS MASTERS FNP-C [Primary Care Provider] - Follow up as needed TRAVEL OUTSIDE OF THE [place] IN LAST 30 DAYS: No - HPI Context: Chief Complaint: [Persistent seizures] [This is a 24-year-old female with a history of seizure disorder who apparently had a emotional confrontation with her father last night around 1045 and started having generalized seizure activity. No urinary or bowel incontinence was noted. Patient's mother reportedly witnessed the patient having 9 seizures and used a total of 20 mg of Diastat before finally calling EMS since the patient was not improving. Patient received a total of 3 mg of Versed and 2 mg of Ativan in route as the patient continued to have seizure-like activity. ] History obtained from [EMS and patient's mother when she arrived at the ED] Symptoms began:[2245 last night] Onset: [Sudden] Timing: [Sudden] Quality: [Generalized shaking] Intensity: [Severe according to the patient's mother] Location: [Generalized] Radiation: [N/A] [The pain does not migrate to a new location.] Aggravating factors: Emotional upset Relieving factors: [none] [Denies] SOB [Denies] nausea [Denies] vomiting [Denies] sweats [Denies] fever [Denies] cough [Denies] calf or leg swelling or pain - Related Data Allergies/Adverse Reactions: acetaminophen [From Darvocet-N] Allergy (Verified 12/12/16 13:42) adhesive tape Allergy (Verified 12/12/16 13:42) codeine Allergy (Verified 12/12/16 13:42) escitalopram [From Lexapro] Allergy (Verified 12/12/16 13:42) hydromorphone [From Dilaudid] Allergy (Verified 12/12/16 13:42) ketorolac [From Toradol] Allergy (Verified 12/12/16 13:42) meperidine [From Demerol] Allergy (Verified 12/12/16 13:42) morphine Allergy (Verified 12/12/16 13:42) nitrofurantoin [From Macrobid] Allergy (Verified 12/12/16 13:42) ondansetron [From Zofran (as hydrochloride)] Allergy (Verified 12/12/16 13:42) propoxyphene [From Darvocet-N] Allergy (Verified 12/12/16 13:42) silver [From Tegaderm AG Mesh] Allergy (Verified 12/12/16 13:42) Past Medical History - General Information source: Patient - Social History Smoking Status: Unknown if Ever Smoked Family History: Reviewed & Not Pertinent Neurological Medical History: Reports: Hx Seizures Renal/ Medical History: Denies: Hx Peritoneal Dialysis Musculoskeletal Medical History: Reports Hx Arthritis Psychiatric Medical History: Reports: Hx Anxiety, Hx Depression Past Surgical History: Reports: Hx Appendectomy, Hx Gynecologic Surgery - Immunizations Hx Diphtheria, Pertussis, Tetanus Vaccination: Yes Review of Systems - Review of Systems Notes: Review of systems as below unless otherwise stated in HPI. CONSTITUTIONAL [No] fever, [No] chills. EYES [No] eye pain. ENT [No] URI symptoms, [No] sore throat, [No] ear pain. CARDIOVASCULAR [No] chest pain, [No] palpitations, [No] edema. RESPIRATORY [No] Cough, [No] SOB, [No] wheezing. GASTROINTESTINAL [No] abdominal pain, [No] nausea, [No] Diarrhea, [No] Vomiting, [No] constipation, [No] melena, [No] rectal bleeding. GENITOURINARY [No] dysuria, [No] urinary frequency, [No] hematuria, [No] urinary urgency, [No] vaginal discharge, [No] vaginal bleeding. MUSCULOSKELETAL [No] Back pain. SKIN [No] Rash. NEUROLOGIC [No] Headache, positive recent seizures, [No] paralysis,[No] parathesias. ENDOCRINE [No] polyuria. HEMO/LYMPATIC [No] easy brusing PSYCHIATRIC [No] depression. Physical Exam - Vital signs Vitals: Temp Resp BP Pulse Ox 98.2 F 34 H 110/76 100 05/11/20 02:02 05/11/20 02:02 05/11/20 02:02 05/11/20 02:02 - Notes Notes: CONSTITUTIONAL [Vital signs reviewed, Patient appeared post ictal and sedated upon arrival, but then had several episodes where she arched her head back, kept her eyes open, focusing forward at times and at other times looking at this provider and the other providers around her. Patient also seem to clench her fist and arch her back during these episodes which lasted roughly 30 seconds to a minute. HEAD [Atraumatic, Normocephalic.] EYES [Eyes are normal to inspection, No discharge from eyes, Extraocular muscles intact, Sclera are normal, Conjunctiva are normal.] ENT [External ears normal to inspection, Nose examination normal, Mouth normal to inspection. No blood or tongue laceration appears to be present on examination of the mouth NECK [Normal ROM, No jugular venous distention, No meningeal signs, ] RESPIRATORY CHEST [Chest is nontender, Breath sounds normal, No respiratory distress.] CARDIOVASCULAR [RRR, No murmurs, Normal S1 S2, No rub, No gallop.] ABDOMEN [Abdomen is nontender, No pulsatile masses, No other masses, Bowel sounds normal, No distension, No peritoneal signs, No hernias.] BACK [There is no CVA Tenderness, There is no tenderness to palpation, Normal inspection.] UPPER EXTREMITY [Inspection normal, No cyanosis, No clubbing, No edema, LOWER EXTREMITY [Inspection normal, No cyanosis, No clubbing, No edema, No calf tenderness, NEURO [No focal motor deficits, No focal sensory deficits, patient currently nonverbal. But during her shaking episodes, she was noted to flinch and pull away as a blood gas was trying to be obtained by one of the nurses] SKIN [Skin is warm, Skin is dry, Skin is normal color.] PSYCHIATRIC [Unable to assess patient's psychiatric status at this time] Course - Re-evaluation Re-evalutation: 05/11/20 06:11 Results of ED MSE discussed with patient and patient's mother. Patient received a gram of Keppra from EMS and 500 mg of Depakote here since she missed her evening dose. Patient is somnolent which is understandable given all the benzodiazepine medications she received but she is arousable and can converse without difficulty. Mother states that she feels comfortable taking the patient home. All questions were answered prior to discharge. Emergency signs and symptoms, reasons to return to the emergency department discussed with patient and patient's mother. 05/11/20 06:14 Patient is stating that she is sore from her "seizure" activity. Patient is requesting some tramadol to help with the soreness. - Vital Signs Vital signs: Temp Pulse Resp BP Pulse Ox 98.5 F 21 H 123/87 H 99 05/11/20 02:03 05/11/20 04:01 05/11/20 04:00 05/11/20 04:01 - Laboratory Results Result Diagrams: 05/11/20 02:03 05/11/20 02:03 Laboratory Results Interpreted: 05/11/20 05/11/20 02:03 02:20 WBC 11.8 H RBC 3.62 L Hgb 11.1 L Hct 32.0 L Urine Protein 30 H Urine Urobilinogen 2.0 H Critical Laboratory Results Reviewed: No Critical Results Attending or Supervising Physician who Reviewed Labs: DENNISE LEDEZMA IV - Radiology Results Critical Radiology Results Reviewed: No Critical Results Discharge - Discharge Clinical Impression: Seizure disorder Condition: Stable Disposition: HOME, SELF-CARE Additional Instructions: Return to the Emergency Department without delay if any worse. HOME CARE INSTRUCTIONS & INFORMATION: Thank you for choosing us for your medical needs. We hope you're satisfied with the care you received. After you leave, you must properly care for your problem and, at the same time, observe its progress. Any condition can change. Some illnesses can change rapidly over hours or days. If your condition worsens, return to the Emergency Department or see your physician promptly. ABOUT YOUR X-RAYS AND EKG'S: If you had an EKG or X-rays taken, they have been read by the Emergency Physician. The X-rays and EKG's will also be read by a Radiologist or Multiple Pressure Riveter Operator within 24 hours. If discrepancies are noted, you will be notified by telephone. Please be certain the ED has a correct telephone number & address where you can be reached. Also, realize that some fractures or abnormalities do not show up on initial X-rays. If your symptoms continue, see your physician. ABOUT YOUR LABORATORY TEST: If you had laboratory tests, the results have been reviewed by the Emergency Physician. Some test results (for example cultures) may not be available for several days. You will be contacted if any test result shows you need additional treatment. Please be certain the ED has a correct telephone number and address where you can be reached. ABOUT YOUR MEDICATIONS: You will receive instructions on how to take your medicine on the prescription label you receive. Additional information may be provided by the Pharmacy. If you have questions afterwards, call the ED for clarification or further instructions. Some prescribed medications may cause drowsiness. Do not perform tasks such as driving a car or operating machinery without consulting your Pharmacist. If you feel you need a refill of pain medication, your condition will need re-evaluation. Please do not call for a refill of any medication. ABOUT YOUR SIGNATURE: Signature of this document acknowledges to followin. Understanding that you received emergency treatment and that you may be released before al medical problems are known or treated. Please be certain the ED has a correct phone number & address where you can be reached. 2. Acknowledgement that you will arrange for follow-up care as recommended. 3. Authorization for the Emergency Physician to provide information to your follow-up Physician in order to maximize your care. AT ANY TIME, IF YOUR SYMPTOMS CHANGE SIGNIFICANTLY OR WORSEN OR YOU DEVELOP NEW SYMPTOMS, RETURN TO THE EMERGENCY DEPARTMENT IMMEDIATELY FOR RE-EVALUATION. OUR GOAL IS TO PROVIDE EXCELLENT MEDICAL CARE! WE HOPE THAT WE HAVE MET YOUR EXPECTATIONS DURING YOUR EMERGENCY DEPARTMENT VISIT AND THAT YOU FEEL YOU HAVE RECEIVED EXCELLENT CARE! Seizure, Known Epileptic You have had a seizure. Seizures may "break through" in an epileptic due to stress of infection or injury, a change in blood chemistry, or drug and alcohol use. Another common cause is failure to take medication as prescribed. Your doctor has evaluated your situation for the likely cause of this seizu re. It is important that you follow his advice concerning any medication changes and follow-up care. Further testing of anti-seizure medication levels in your blood may be necessary. If you have a route delivery service driver's license, it's important that you DO NOT DRIVE until given permission by your physician. This seizure must be reported to the route delivery service driver's license bureau. Call the doctor or return if seizures recur, or if new or unusual symptoms arise -- such as severe headache, confusion, excessive sleepiness, local weakness or numbness, neck stiffness, or fever. Prescriptions: Tramadol HCl [Ultram 50 mg Tablet] 50 mg PO Q4HP PRN #12 tab PRN Reason: pain Referrals: ANAIS MASTERS FNP-C [Primary Care Provider] - Follow up as needed
[2020-05-11 02:57] LABS: APPEARANCE,URINE SLIGHTLY-CLOUDY; BILIRUBIN,URINE NEGATIVE (NEGATIVE); COLOR,URINE YELLOW; GLUCOSE, URINE NEGATIVE (NEGATIVE); KETONES,URINE NEGATIVE (NEGATIVE); LEUKOCYTE ESTERASE,URINE NEGATIVE (NEGATIVE); NITRITE,URINE NEGATIVE (NEGATIVE); PROTEIN,URINE 30 mg/dL (NEGATIVE); URINE SPECIFIC GRAVITY 1.026
[2020-05-11 02:59] LABS: ALBUMIN 3.7 g/dL (3.5-5.0); ALCOHOL < 10 mg/dL (NONE DETECTED); ALKALINE PHOSPHATASE 61 U/L (38-126); ANION GAP 9 (5-19); ASPARTATE AMINO TRANSFERASE 15 U/L (14-36); BILIRUBIN,DIRECT 0.3 mg/dL (0.0-0.4); BILIRUBIN,TOTAL 0.4 mg/dL (0.2-1.3); BLOOD UREA NITROGEN 10 mg/dL (7-20); CALCIUM 9.2 mg/dL (8.4-10.2); CARBON DIOXIDE 30 mmol/L (22-30); CHLORIDE 101 mmol/L (98-107); GLUCOSE 79 mg/dL (75-110); POTASSIUM 4.3 mmol/L (3.6-5.0); TOTAL PROTEIN 6.7 g/dL (6.3-8.2)
[2020-05-11 03:00] LABS: ABSOLUTE BASOPHILS # (AUTO) 0.1 10^3/uL (0.0-0.2); ABSOLUTE EOSINOPHILS # (AUTO) 0.3 10^3/uL (0.0-0.6); ABSOLUTE LYMPHOCYTES (AUTO) 3.2 10^3/uL (0.5-4.7); ABSOLUTE NEUT (AUTO) 7.1 10^3/uL (1.7-8.2); BASOPHILS % (AUTO) 0.5 % (0-2); EOSINOPHILS % (AUTO) 2.9 % (0-6); HEMOGLOBIN 11.1 g/dL (12.0-15.5); LYMPHOCYTES % (AUTO) 27.6 % (13-45); MEAN CORPUSCULAR HEMOGLOBIN 30.7 pg (27.0-33.4); MEAN CORPUSCULAR HGB CONC 34.6 g/dL (32.0-36.0); MEAN CORPUSCULAR VOLUME 89 fl (80-97); MONOCYTES % (AUTO) 8.6 % (3-13); PLATELET COUNT 309 10^3/uL (150-450); RED BLOOD COUNT 3.62 10^6/uL (3.72-5.28); SEGMENTED NEUTROPHILS % (AUTO) 60.4 % (42-78); TOTAL CELLS COUNTED % (AUTO) 100 %; WHITE BLOOD COUNT 11.8 10^3/uL (4.0-10.5)
[2020-05-11 03:10] LABS: URINE AMPHETAMINES SCREEN NEGATIVE; URINE BARBITURATES SCREEN NEGATIVE; URINE COCAINE SCREEN NEGATIVE; URINE MARIJUANA (THC) SCREEN NEGATIVE; URINE METHADONE SCREEN NEGATIVE; URINE PHENCYCLIDINE SCREEN NEGATIVE
[2020-05-11 03:40] LABS: URINE BENZODIAZEPINES SCREEN UNCONFIRMED POSITIVE
[2020-05-11] MEDS ORDERED: VALPROATE SODIUM INJ/PF 500 MG/5 ML SDV IV ONE (04:30)
[2020-05-11 07:08] VITALS: BP 116/76
== END 2020-05-11 07:09 | disposition home or self-care (01) ==
LOC: ER 02:02
DX: G40.909 Epilepsy, unspecified, not intractable, without status epilepticus (principal); Z79.899 Other long term (current) drug therapy; Z91.048 Other nonmedicinal substance allergy status; Z88.8 Allergy status to other drugs, medicaments and biological substances; Z88.6 Allergy status to analgesic agent; Z88.5 Allergy status to narcotic agent; Z88.1 Allergy status to other antibiotic agents
CPT/HCPCS: 99284; 96365; 80307 ×2; 85025; 80053; 81001; 80164; J3490

== ENCOUNTER 2020-05-13 03:26 | Emergency (ER) | payer MEDICARE, MEDICAID ==
--- NOTE | 2020-05-13 07:05 | ER Document Report ---
ED Seizure - General Mode of Arrival: Medic Information source: Parent, Emergency Med Personnel TRAVEL OUTSIDE OF THE [place] IN LAST 30 DAYS: No - HPI Patient complains to provider of: History of seizures Severity: None Pain Level: Denies Continued on arrival to ED: No Can details of seizure be obtained/verified: No Episode witnessed (by whom): Yes Current seizure medications: Keppra History of: TBI Character of seizure: Complete loss/conscious, Focal shaking. No: Generalized shaking, Staring, Incontinent stool, Incontinent bladder, Stopped breathing, Lost pulse Injuries: None Treatment AIRPLANE CAPTAIN: Other - Versed on the way and she came out of the seizure and is back in the seizure Associated Symptoms: None <CLAIRE HOWELL - Last Filed: 05/13/20 08:40> <CHRISTI LEO - Last Filed: 05/13/20 10:26> - General Chief Complaint: Seizure Stated Complaint: POSS SEIZURE Time Seen by Provider: 05/13/20 06:35 Primary Care Provider: ANAIS MASTERS FNP-C [Primary Care Provider] - Follow up as needed Notes: 24-year-old female presented to ED for complaint of seizure activity tonight. She does have a history of seizures and is on Depakote. She states she does not take Keppra anymore. Mother came back to the room states she has been in and out of her seizures most of the day but at 10 PM she went into epilepticus left because. She states she has Diastat but did not give it to her because is not sure if it would help. She states she did call the EMS around 2:00 they came and she did receive a total of 10 mg of Versed IV by EMS on the way into the hospital. I have examined the patient at 630. She was awake alert oriented talking to me. And then while I am talking to her mother came in and was very agitated. Then she started with eye twitching again. Mother states this is what she does when she goes into seizures. There is no tremors at all but she does not answer any questions. States she has not been to see her neurologist since about February. She states last night while she was having a seizure she was shaking and walk to the bathroom had a bowel movement and then walked back to the room with her father. Mother states she did not have any incontinence of urine or stool last night and she has not had any this morning. Mother states she had all of her seizure medicines last night does not get another Depakote until 11:00 this morning. I did consult Dr. Leo who came in and examined the patient. He states she is now in status epilepticus. He recommended Keppra 1 g IV now Ativan 2 mg IV now and labs and ABG which have all been ordered. Mother states that she is not allergic to Keppra it just did not work. Second 2 mg of Ativan was given when she remained in status epilepticus. The Keppra was ordered and she started having grand mal seizures. Another 2 mg of Ativan was ordered and Dr. Leo took over the patient. Constitutional: Negative for fever. Eyes: Dilated pupils with fluttering eyelids Cardiovascular: Negative for chest pain. Respiratory: Negative for shortness of breath. Gastrointestinal: Negative for abdominal pain, vomiting or diarrhea. Genitourinary: Negative for dysuria. Musculoskeletal: Negative for back pain. Skin: Negative for rash. Neurological: She is not responding to verbal or tactile stimulus. 10 point ROS negative except as marked above and in HPI. VITAL SIGNS: Within normal limits. HEAD: Normal with no signs of head trauma. EYES: PERRLA, EOMI, conjunctiva normal, no discharge. EARS: Hearing grossly intact. NOSE: Normal. THROAT: Oropharynx is normal. NECK: Normal range of motion, no tenderness, supple, no lymphadenopathy, No adenopathy, no JVD. CHEST: Clear breath sounds bilaterally. No wheezes, rales, or rhonchi. CARDIAC: Regular rate and rhythm. S1 and S2, without murmurs, gallops, or rubs. VASCULAR: No Edema. Peripheral pulses normal and equal in all extremities. ABDOMEN: Normal and soft with no tenderness, no masses or pulsatile masses. GASTROINTESTINAL: Bowel sounds normal GENITOURINARY: Normal, No tenderness LYMPATHTIC: No lymphadenopathy noted. MUSCULOSKELETAL: Good range of motion of all major joints. Extremities without clubbing, cyanosis or edema. NEUROLOGICAL: Alert and oriented x 3. No focal sensory or strength deficits. Speech normal. Follows commands appropriately. Patient went into status epilepticus while I was talking to her. She just finished tell me she was feeling good and she was ready to go home. She became unresponsive did not lose pulse or respirations SKIN: Normal appearance with no rashes or lesions. (CLAIRE HOWELL) - Related Data Allergies/Adverse Reactions: acetaminophen [From Darvocet-N] Allergy (Verified 12/12/16 13:42) adhesive tape Allergy (Verified 12/12/16 13:42) codeine Allergy (Verified 12/12/16 13:42) escitalopram [From Lexapro] Allergy (Verified 12/12/16 13:42) hydromorphone [From Dilaudid] Allergy (Verified 12/12/16 13:42) ketorolac [From Toradol] Allergy (Verified 12/12/16 13:42) meperidine [From Demerol] Allergy (Verified 12/12/16 13:42) morphine Allergy (Verified 12/12/16 13:42) nitrofurantoin [From Macrobid] Allergy (Verified 12/12/16 13:42) ondansetron [From Zofran (as hydrochloride)] Allergy (Verified 12/12/16 13:42) propoxyphene [From Darvocet-N] Allergy (Verified 12/12/16 13:42) silver [From Tegaderm AG Mesh] Allergy (Verified 12/12/16 13:42) Past Medical History - General Information source: Parent - Social History Smoking Status: Never Smoker Frequency of alcohol use: None Family History: Reviewed & Not Pertinent - Past Medical History Cardiac Medical History: Reports: None Pulmonary Medical History: Reports: None Neurological Medical History: Reports: Hx Migraine, Hx Seizures Endocrine Medical History: Reports: None Renal/ Medical History: Reports: None Malignancy Medical History: Reports: None GI Medical History: Reports: None Musculoskeletal Medical History: Reports Hx Arthritis Skin Medical History: Reports None Psychiatric Medical History: Reports: Hx Anxiety, Hx Depression Traumatic Medical History: Reports: None Infectious Medical History: Reports: None Past Surgical History: Reports: Hx Appendectomy, Hx Gynecologic Surgery - Immunizations Hx Diphtheria, Pertussis, Tetanus Vaccination: Yes <CLAIRE HOWELL - Last Filed: 05/13/20 08:40> Physical Exam - Vital signs Vitals: Temp 98.4 F 05/13/20 03:27 Course - Laboratory Results Result Diagrams: 05/13/20 04:58 05/13/20 04:58 Critical Laboratory Results Reviewed: Yes Attending or Supervising Physician who Reviewed Labs: CHRISTI LEO - Radiology Results Critical Radiology Results Reviewed: Yes Attending or Supervising Physician who Reviewed Radiology: CHRISTI LEO <CLAIRE HOWELL - Last Filed: 05/13/20 08:40> - Laboratory Results Result Diagrams: 05/13/20 04:58 05/13/20 04:58 <CHRISTI LEO - Last Filed: 05/13/20 10:26> - Re-evaluation Re-evalutation: 05/13/20 10:23 I assumed all care of this patient from the nurse practitioner. I performed a rapid sequence intubation for status epilepticus. Patient has received multiple doses of IV Ativan and has been loaded with phenytoin. We have kept her under sedation with propofol since intubation and she is being transported by air to [facility] for further care in ICU with neurology. (CHRISTI LEO) - Vital Signs Vital signs: Temp Pulse Resp BP Pulse Ox 98.4 F 25 H 127/67 H 100 05/13/20 04:01 05/13/20 09:16 05/13/20 09:16 05/13/20 09:16 - Laboratory Results Laboratory Results Interpreted: 05/13/20 05/13/20 04:58 08:34 Hgb 11.3 L Hct 33.5 L RDW 14.2 H Urine Protein 30 H Procedures - Intubation Orotracheal Airway evaluation: Normal anatomy Mallampati Classification: Class 2 Medications: Etomidate, Succinylcholine Intubation method: Orotracheal Blade type: Emile Blade size: 3 Equipment used: Glidescope ETT size: 7.5 ETT secured at: Teeth ETT secured at (cm): 23 Breath Sounds after Intubation: Equal End tidal CO2 confirmed: Yes Post Intubation Xray: Yes Intubation Complications: No complications <CHRISTI LEO - Last Filed: 05/13/20 10:26> Critical Care Note - Critical Care Note Total time excluding time spent on procedures (mins): 90 - Intubation and management of status epilepticus <CHRISTI LEO - Last Filed: 05/13/20 10:26> Discharge <CLAIRE HOWELL - Last Filed: 05/13/20 08:40> <CHRISTI LEO - Last Filed: 05/13/20 10:26> - Discharge Clinical Impression: Status epilepticus Disposition: [facility] Referrals: ANAIS MASTERS FNP-C [Primary Care Provider] - Follow up as needed
[2020-05-13] MEDS ORDERED: LEVETIRACETAM 1000 MG/NACL-ISO 1,000 MG/100 ML RTUPB IV ONE (07:24)
[2020-05-13] MEDS ORDERED: LORAZEPAM INJ 2 MG/1 ML VIAL IV ONE ×3 (07:26→07:59)
[2020-05-13 07:31] LABS: ABSOLUTE BASOPHILS # (AUTO) 0.1 10^3/uL (0.0-0.2); ABSOLUTE EOSINOPHILS # (AUTO) 0.2 10^3/uL (0.0-0.6); ABSOLUTE LYMPHOCYTES (AUTO) 2.6 10^3/uL (0.5-4.7); ABSOLUTE MONOCYTES (AUTO) 0.8 10^3/uL (0.1-1.4); ABSOLUTE NEUT (AUTO) 5.9 10^3/uL (1.7-8.2); BASOPHILS % (AUTO) 0.8 % (0-2); EOSINOPHILS % (AUTO) 1.8 % (0-6); HEMATOCRIT 33.5 % (36.0-47.0); HEMOGLOBIN 11.3 g/dL (12.0-15.5); LYMPHOCYTES % (AUTO) 27.1 % (13-45); MEAN CORPUSCULAR HEMOGLOBIN 30.2 pg (27.0-33.4); MEAN CORPUSCULAR HGB CONC 33.9 g/dL (32.0-36.0); MEAN CORPUSCULAR VOLUME 89 fl (80-97); MONOCYTES % (AUTO) 8.1 % (3-13); PLATELET COUNT 306 10^3/uL (150-450); RED BLOOD COUNT 3.75 10^6/uL (3.72-5.28); RED CELL DISTRIBUTION WIDTH 14.2 % (11.5-14.0); SEGMENTED NEUTROPHILS % (AUTO) 62.2 % (42-78); TOTAL CELLS COUNTED % (AUTO) 100 %; WHITE BLOOD COUNT 9.4 10^3/uL (4.0-10.5)
[2020-05-13 07:47] LABS: ALBUMIN 3.7 g/dL (3.5-5.0); ALKALINE PHOSPHATASE 65 U/L (38-126); ANION GAP 7 (5-19); ASPARTATE AMINO TRANSFERASE 17 U/L (14-36); BILIRUBIN,DIRECT 0.3 mg/dL (0.0-0.4); BILIRUBIN,TOTAL 0.4 mg/dL (0.2-1.3); BLOOD UREA NITROGEN 14 mg/dL (7-20); CALCIUM 8.9 mg/dL (8.4-10.2); CARBON DIOXIDE 28 mmol/L (22-30); CHLORIDE 103 mmol/L (98-107); GLUCOSE 88 mg/dL (75-110); POTASSIUM 4.3 mmol/L (3.6-5.0)
[2020-05-13] MEDS ORDERED: PHENYTOIN SODIUM INJ/PF 250 MG/5 ML SDV IV ONE (07:56)
[2020-05-13] MEDS ORDERED: PROPOFOL 1,000 MG/100 ML INFUS..BTL IV PRN ×2 (08:02→10:18)
--- NOTE | 2020-05-13 08:15 | RADIOLOGY REPORT (SQ) ---
EXAM DESCRIPTION: CHEST SINGLE VIEW IMAGES COMPLETED DATE/TIME: 05/13/2020 7:47 am REASON FOR STUDY: chest COMPARISON: 03/08/2019 EXAM PARAMETERS: NUMBER OF VIEWS: One view. TECHNIQUE: Single frontal radiographic view of the chest acquired. RADIATION DOSE: NA LIMITATIONS: None. FINDINGS: LUNGS AND PLEURA: No opacities, masses or pneumothorax. No pleural effusion. MEDIASTINUM AND HILAR STRUCTURES: No masses. Contour normal. HEART AND VASCULAR STRUCTURES: Heart normal in size. Normal vasculature. BONES: No acute findings. HARDWARE: None in the chest. OTHER: No other significant finding. IMPRESSION: NO ACUTE RADIOGRAPHIC FINDING IN THE CHEST. TECHNICAL DOCUMENTATION: JOB ID: [id number] 2010 [employer]- All Rights Reserved Reading location - IP/workstation name: [email or web address]
[2020-05-13] MEDS ORDERED: PROPOFOL INJ 200 MG/20 ML VIAL IV ONE (08:17)
--- NOTE | 2020-05-13 08:23 | ER Document Report ---
Doctor's Note Notes: 05/13/20 08:17 24-year-old female I was asked to see along with the nurse practitioner for seizure activity. I have reviewed the chart in detail and examined the patient at the bedside and also have obtained supplemental history from the patient's mother. 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 She has had a longstanding history of chronic recurrent seizures. She is presently on Lamictal and valproate. Mother indicates that she is compliant with current medications. She has been having intermittent seizure activity since 10:00 last night and has not returned to her baseline since then. Patient been department for about 4 hours when I came on duty and saw her initially. She appeared to be having some focal seizure activity with eyes open and was nonverbal. She had a diminished gag reflex. Reviewing the chart she had not had any labs documented had not had a chest x-ray or a head CT prior to my evaluation. Patient had already received Versed by EMS and had also gotten Ativan IV. She had also been started on IV Keppra. Patient went into a grand mal seizure which lasted for several minutes unrelieved with additional Ativan IV. She was clearly in status epilepticus. I advised mother that patient needed airway control and IV propofol. I performed a rapid sequence intubation at 0800 hrs. with a glide scope and intubated the patient with a 7.5 ET tube without difficulty on single pass. Patient had been premedicated with succinyl choline 200 mg and etomidate 20 mg. Appropriate passage of the tube was confirmed by visualization of passage of the ET tube through the cords, positive color change on end-tidal CO2 detector and symmetrical breath sounds over both lung mueller. Propofol drip has been initiated. Impression: Status epilepticus Full labs are pending. Head CT is pending. Chest x-ray pending. We do not have a local neurologist. We will transfer to [facility] in [facility] and we are waiting to speak with their on-call propellant charge loader at this time. Critical care time: 65 minutes. 05/13/20 08:27 Patient has been accepted for transfer to the intensive care unit at [facility] by Dr. Breann Ceron. Rapid Covid test has been ordered. EMTALA form completed.
[2020-05-13 09:03] LABS: APPEARANCE,URINE CLEAR; BILIRUBIN,URINE NEGATIVE (NEGATIVE); COLOR,URINE YELLOW; GLUCOSE, URINE NEGATIVE (NEGATIVE); KETONES,URINE NEGATIVE (NEGATIVE); LEUKOCYTE ESTERASE,URINE NEGATIVE (NEGATIVE); NITRITE,URINE NEGATIVE (NEGATIVE); PROTEIN,URINE 30 mg/dL (NEGATIVE); UROBILINOGEN,URINE NEGATIVE mg/dL (<2.0)
--- NOTE | 2020-05-13 09:21 | RADIOLOGY REPORT (SQ) ---
EXAM DESCRIPTION: CHEST SINGLE VIEW IMAGES COMPLETED DATE/TIME: 05/13/2020 9:02 am REASON FOR STUDY: er 8 post intubation COMPARISON: 05/13/2020 EXAM PARAMETERS: NUMBER OF VIEWS: One view. TECHNIQUE: Single frontal radiographic view of the chest acquired. RADIATION DOSE: NA LIMITATIONS: None. FINDINGS: LUNGS AND PLEURA: Low lung volumes limits examination. The perihilar markings are mildly prominent in appearance may be related to the low lung volumes. No pneumothorax or pleural effusion . MEDIASTINUM AND HILAR STRUCTURES: No masses. Contour normal. HEART AND VASCULAR STRUCTURES: Heart normal in size. Normal vasculature. BONES: No acute findings. HARDWARE: Status post placement endotracheal tube, tip is approximately 1.4 cm proximal to the dimple a. Interval placement of enteric tube, tip overlies the fundus of the stomach. OTHER: No other significant finding. IMPRESSION: 1. Status post placement of endotracheal and nasogastric tubes since the prior study da ayesha 05/13/2020. 2. Low lung volumes limits the examination. The perihilar markings bilaterally are mildly prominent in appearance may be related to the low lung volumes. TECHNICAL DOCUMENTATION: JOB ID: [id number] 2010 [employer]- All Rights Reserved Reading location - IP/workstation name: [email or web address]
[2020-05-13 09:25] LABS: URINE AMPHETAMINES SCREEN NEGATIVE; URINE BARBITURATES SCREEN NEGATIVE; URINE BENZODIAZEPINES SCREEN UNCONFIRMED POSITIVE; URINE COCAINE SCREEN NEGATIVE; URINE MARIJUANA (THC) SCREEN NEGATIVE; URINE METHADONE SCREEN NEGATIVE; URINE PHENCYCLIDINE SCREEN NEGATIVE
[2020-05-13 10:42] LABS: ARTERIAL BLOOD BASE EXCESS -0.6 mmol/L; ARTERIAL BLOOD FIO2 50%; ARTERIAL BLOOD H2CO3 1.31 mmol/L (1.05-1.35); ARTERIAL BLOOD HCO3 24.8 mmol/L (20-24); ARTERIAL BLOOD O2 SATURATION 98.3 % (94-98); ARTERIAL BLOOD PCO2 43.6 mmHg (35-45); ARTERIAL BLOOD PH 7.37 (7.35-7.45); ARTERIAL BLOOD PO2 122.9 mmHg (80-100); ARTERIAL BLOOD TOTAL CO2 26.1 mmol/L (21-25)
[2020-05-13 11:06] VITALS: BP 122/74
== END 2020-05-13 11:07 | disposition short-term general hospital (02) ==
LOC: ER 03:26
DX: G40.901 Epilepsy, unspecified, not intractable, with status epilepticus (principal); Z20.822 Contact with and (suspected) exposure to COVID-19; Z88.6 Allergy status to analgesic agent; Z79.899 Other long term (current) drug therapy
CPT/HCPCS: 31500; 99291; 51702; 96375; 96365; 96366; 96368; 36415; 80307 ×2; 82803; 84703; 85025; 0202U ×23; 80053; 81001; 80164; 71045; 94660; J2704 ×2; J2060; J1165; J1953